=== PATIENT | female | born 1965 | race Caucasian/White ===

== ENCOUNTER 2019-09-18 07:31 | Outpatient (CLI) | payer OTHER, SELFPAY ==
--- NOTE | ~2019-09-18 | MM_ITS ---
EXAMINATION: MM screening [facility] BI w skip HISTORY: Screening mammogram, family history of breast cancer in her mother. TECHNIQUE: Craniocaudal and mediolateral oblique 3-D tomosynthesis images were obtained and synthetic 2-D images were generated. CAD analysis was submitted and interpreted. COMPARISON: 09/11/2018, 09/07/2017 BREAST PARENCHYMAL COMPOSITION: There are scattered areas of fibroglandular density. FINDINGS: There is stable focal asymmetry in the upper-outer quadrant of the left breast with biopsy change. There is no evidence of suspicious mass, calcification, or architectural distortion to sugges t malignancy in either breast. There has been no suspicious interval change. IMPRESSION: 1. No mammographic evidence of malignancy. 2. Recommend routine screening mammography in one year. BI-RADS Category 2: Benign finding(s). Reviewed, dictated and finalized at location A.
== END 2019-09-18 07:32 | disposition home or self-care (01) ==
LOC: ANHIMG 07:33
PROVIDERS: PCP Family Medicine; Visit Provider Family Medicine
DX: Z12.31 Encounter for screening mammogram for malignant neoplasm of breast (principal)
CPT/HCPCS: 77063; 77067

== ENCOUNTER → 2020-07-10 09:29 | Outpatient (CLI) | payer OTHER, SELFPAY ==
--- NOTE | ~2020-07-10 | XR_ITS ---
EXAMINATION: XR chest 2V DATE: 07/10/2020 09:57 INDICATION: Pleurisy. TECHNIQUE: Frontal and lateral views of the chest were obtained. COMPARISON: CT abdomen and pelvis 09/02/16 FINDINGS: The chest demonstrates clear lungs without pneumonia, pleural effusion, or pneumothorax. Th e heart size is normal. IMPRESSION: 1. No acute cardiopulmonary disease. Reviewed, dictated and finalized at location A. MS ASSISTANT
== END ==
PROVIDERS: PCP Family Medicine; Visit Provider Physician Assistant
DX: R09.1 Pleurisy (principal)
CPT/HCPCS: 71046

== ENCOUNTER → 2020-09-19 09:57 | Outpatient (CLI) | payer OTHER, SELFPAY ==
--- NOTE | ~2020-09-19 | MM_ITS ---
EXAMINATION: MM screening patience BI w skip HISTORY: Screening mammogram, family history of breast cancer in her mother. TECHNIQUE: Craniocaudal and mediolateral oblique 3-D tomosynthesis images were obtained and synthetic 2-D images were generated. CAD analysis was submitted and interpreted. COMPARISON: 09/18/2019, 09/11/2018, 09/07/2017 BREAST PARENCHYMAL COMPOSITION: There are scattered areas of fibroglandular density. FINDINGS: Again noted is stable focal asymmetry in the upper outer quadrant of the left breast with b iopsy change. There is no evidence of suspicious mass, calcification, or architectural distortion to suggest malignancy in either breast. There has been no suspicious interval change. IMPRESSION: 1. No mammographic evidence of malignancy. 2. Recommend routine screening mammography in one year. BI-RADS Category 2: Benign finding(s). Reviewed, dictated and finalized at location A.
--- NOTE | ~2020-09-19 | DEXA_ITS ---
Bone Density Report Name: Katty Cartwright Age: 55 Sex: Female Ethnicity: White Date of : 1965 Indication: postmenopausal; screening for osteoporosis; Referring Provider: Blaise Painting Study: Bone densitometry was performed. Exam Date: September 19, 2020 Accession number: [id number] Bone Density: Region BMD T-score Z-score Classification AP Spine (L1-L4) 1.016 -0.3 0.9 Normal Femoral Neck (Left) 0.867 0.2 1.3 Normal Total Hip (Left) 1.134 1.6 2.3 Normal Femoral Neck (Right) 0.821 -0.3 0.9 Normal Total Hip (Right) 1.053 0.9 1.7 Normal Total Hip Mean 1.094 1.3 2.0 Normal World Health Organization criteria for BMD impression classify patients as: Normal (T-score at or above -1.0), Osteopenia (T-score between -1.0 and -2.5), or Osteoporosis (T-score at or below -2.5). 10-year Fracture Risk: FRAX not reported because: All T-scores for Spine Total, Hip Total, Femoral Neck at or above -1.0 Clinical Information Provided by Patient: Has used the following medications: Vitamin D Patient maximum height was 62 Menopause Age: 50 No regular weight bearing exercise Drinks caffeinated beverages Onset of menses at age 11 Number of children 2 Impression: The patient has normal bone mass. Discussion: BONE DENSITY IS ABOVE THE MINIMUM DESIRABLE LEVEL AT ALL SKELETAL SITES TESTED. This patient?s bone mineral density is above the minimum desirable level (T-score -1.0 or better) at all sites measured. The patient should follow a healthful lifestyle (good nutrition with adequate calcium and vitamin D, and appropriate weight-bearing exercise). Follow-Up: Consider repeating this study in 5 years or sooner if there is some new clinical indication. Reported by: [facility] on 09/19/2020 10:45:00 AM. Reviewed, dictated and finalized at location A. [facility]
== END ==
PROVIDERS: PCP Family Medicine; Visit Provider Physician Assistant
DX: Z12.31 Encounter for screening mammogram for malignant neoplasm of breast (principal); Z13.820 Encounter for screening for osteoporosis
CPT/HCPCS: 77063; 77067; 77080

== ENCOUNTER → 2021-01-05 08:17 | Outpatient (CLI) | payer OTHER, SELFPAY ==
--- NOTE | ~2021-01-05 | XR_ITS ---
EXAMINATION: XR chest 2V DATE: 01/05/2021 08:43 INDICATION: Left-sided chest pain TECHNIQUE: PA and lateral views of the chest are obtained. COMPARISON: 07/10/2020 FINDINGS: The lungs are free of acute opacities. There is no pleural effusion or pneumothorax. The ca rdiomediastinal silhouette is normal. There is mild thoracic spondylosis. IMPRESSION: 1. No acute cardiopulmonary abnormality. Reviewed, dictated and finalized at location A.
--- NOTE | ~2021-01-05 | CT_ITS ---
EXAMINATION: CT abdomen pelvis wo con DATE: 01/05/2021 08:43 INDICATION: Right lower quadrant abdominal pain TECHNIQUE: Computed tomography (CT) of the abdomen and pelvis was performed without intravenous contr ast. The dose-length product (DLP) was 1052.11 mGy-cm. Automated exposure control and iterative recon struction technique were employed. COMPARISON: 09/02/2016 FINDINGS: The lung bases are clear. The heart size is normal. A small sliding hiatal hernia is noted. The liver, spleen, pancreas, gallbladder, and adrenal glands are normal. There is a 5 mm nonobstruct ing stone of the left kidney. The right kidney is unremarkable. No pathologically enlarged abdominal or pelvic lymph nodes are identified. There is no free intraperitoneal gas or evidence of bowel obstr uction. A moderate volume of colonic stool is present. The appendix is normal. A small umbilical latanya ia containing fat is noted. There is mild lumbar spondylosis. IMPRESSION: 1. No CT correlate for the patient's symptoms. 2. Nonobstructing left nephrolithiasis. 3. Umbilical hernia containing fat Reviewed, dictated and finalized at location A.
== END ==
PROVIDERS: PCP Family Medicine; Visit Provider Family Medicine
DX: K42.9 Umbilical hernia without obstruction or gangrene (principal); R07.81 Pleurodynia; N20.0 Calculus of kidney
CPT/HCPCS: 71046; 74176

== ENCOUNTER 2021-09-18 12:55 | Emergency (ER) | payer OTHER, SELFPAY ==
--- NOTE | ~2021-09-18 | XR_ITS ---
EXAMINATION: XR chest 2V DATE: 09/18/2021 14:36 INDICATION: Epigastric pain TECHNIQUE: PA and lateral views of the chest are obtained. COMPARISON: 01/05/2021 FINDINGS: The lungs are free of acute opacities. There is no pleural effusion or pneumothorax. The ca rdiomediastinal silhouette is normal. There is mild thoracic spondylosis. IMPRESSION: 1. No acute cardiopulmonary abnormality. Reviewed, dictated and finalized at location A.
[2021-09-18 13:17] VITALS: BP 152/74; PULSE 77; RESP 14; TEMP 36.4; O2SAT 100
[2021-09-18 13:54] VITALS: BP 148/86; PULSE 79; RESP 18; O2SAT 100
[2021-09-18 14:01] VITALS: BP 141/84; PULSE 77; RESP 19; O2SAT 97
--- NOTE | 2021-09-18 14:04 | ECG_ITS ---
Measurements Intervals [place] Rate: 70 P: 38 [place]: 147 QRS: 7 QRSD: 67 T: 37 QT: 355 QTc: 385 Interpretive Statements SINUS RHYTHM LOW QRS VOLTAGE IN PRECORDIAL LEADS BORDERLINE T WAVE ABNORMALITY- ANTERIOR LEADS BASELINE ARTIFACT- I, III, AVL, AVF BORDERLINE ECG Electronically Signed On 09-18-2021 14:27:50 CDT by Julio Bragg D.O.
[2021-09-18 14:25] LABS: Basophils Percent Auto 0.6 % (0.2-1.2); Eosinophils Absolute Auto 0.1 K/mm3 (0-0.3); Eosinophils Percent Auto 1.3 % (0-4.4); Hematocrit 40.8 % (37.0-47.0); Hemoglobin 14.1 g/dL (12.0-15.0); Immature Granulocyte Absolute 0.01 K/mm3 (0.00-0.031); Immature Granulocyte Percent A 0.2 % (0-0.5); Lymphocytes Absolute Auto 1.45 K/mm3 (0.9-3.2); Lymphocytes Percent Auto 30.3 % (18.3-44.2); Mean Corpuscular HGB Conc 34.6 g/dl (32-36); Mean Corpuscular Hemoglobin 31.9 pg (26-34); Mean Corpuscular Volume 92.3 fl (80-100); Monocytes Absolute Auto 0.4 K/mm3 (0.1-0.6); Monocytes Percent Auto 9.2 % (2.6-8.5); Neutrophils Absolute Auto 2.8 K/mm3 (1.3-6.7); Neutrophils Percent Auto 58.4 % (45.5-73.1); Platelet Count Result 199 k/mm3 (150-375); Red Blood Count 4.42 M/mm3 (4.2-5.4); White Blood Count 4.8 K/mm3 (4.5-10.0)
[2021-09-18] MEDS: BELLADONNA ALK/PHENOB ELIX 10 ML, MAG HYDROX/ALUMINUM HYD/SIMETH 30 ML, LIDOCAINE HCL 2... PO (14:29)
--- NOTE | 2021-09-18 14:31 | PC.NURSE ---
Pt to XRAY via stretcher at this time.
[2021-09-18 14:35] LABS: Prothrombin Time 12.6 Seconds (11.1-14.7)
[2021-09-18 14:36] LABS: Alanine Aminotransferase 31 U/L (6-35); Albumin Level 4.6 g/dL (3.5-5.1); Alkaline Phosphatase 81 U/L (38-126); Anion Gap 6 mmol/L (8-16); Aspartate Amino Transferase 28 U/L (14-36); Bilirubin,Total 0.7 mg/dL (0.2-1.3); Blood Urea Nitrogen 19 mg/dL (7-17); Calcium 9.5 mg/dL (8.4-10.2); Carbon Dioxide 29 mmol/L (22-30); Chloride 103 mmol/L (98-107); Estimated CRCL calculation 76 ml/min; Estimated Glomerular Filt Rate > 60; Glucose 90 mg/dL (65-110); Lipase 89 U/L (23-300); Partial Thromboplastin Time 33.2 SECONDS (22.3-36.8); Sodium 138 mmol/L (137-145)
[2021-09-18 14:47] LABS: Troponin I < 0.012 ng/mL (0.000-0.034)
--- NOTE | 2021-09-18 14:52 | ED.GENADULT ---
HPI - General Adult General Chief complaint: Unspecified Stated complaint: acid reflux Time Seen by Provider: 09/18/21 13:55 History of Present Illness HPI narrative: Patient is a 56-year-old female who presents ER with acid reflux. Reports it began 2 days ago. Is very intense with poor taste going into the back of mouth. Associated with sweats and nausea. She is also had some radiation into her right shoulder. Symptoms have waxed and waned over the last 2 days. She has tried acid reflux medication with only temporary improvement. No chest pain or chest pressure. No exertional dyspnea or shortness of breath. Reports she has history of reflux its usually triggered in the evening. PCP became concerned and recommended she come to the ER to have her heart evaluated. No history of coronary disease. Related Data Allergies Allergy/AdvReac Type Severity Reaction Status Date / Time No Known Allergies Allergy Verified 09/18/21 13:54 Review of Systems Review of Systems: All systems reviewed & are unremarkable except as noted in HPI and below Constitutional: Constitutional: Denies chills and Denies fever(s) ENT: Denies nasal congestion and Denies sore throat Cardiovascular: Cardiovascular: Denies chest pain, Denies radiating jaw, neck or arm pain and Denies palpitations Gastrointestinal: Gastrointestinal: Denies abdominal pain, Reports heartburn, Denies nausea and Denies vomiting PMFSH Past Medical History Medical History (Updated 09/18/21 @ 16:14 by Douglas Ellsworth MD) Morbid obesity Surgical History Surgical History (Updated 09/18/21 @ 16:11 by Douglas Ellsworth MD) History of breast biopsy Family History Family History Grandparent Diabetes mellitus Family history of cardiovascular disease Mother Family history of malignant neoplasm of breast in first degree relative, Onset Age: 72 Social History Social History Alcohol intake: current Exam Narrative: GENERAL: Well-appearing, well-nourished, and in no acute distress. HEAD: Normocephalic, atraumatic. NECK: Supple. CHEST: Clear to auscultation. No respiratory distress. HEART: Regular rate and rhythm. Normal peripheral pulses. ABDOMEN: Soft, nontender, nondistended. EXTREMITIES: Normal range of motion. No edema. SKIN: Warm, dry, no rash. NEURO: Alert and oriented x3. PSYCH: Normal mood and affect. Course Course Emergency Course: Patient informed of results. Symptoms improved with GI cocktail. Discharge home. Vital Signs Vital signs: Vital Signs Temperature 97.6 F 09/18/21 13:17 Pulse Rate 77 09/18/21 13:17 Respiratory Rate 14 09/18/21 13:17 Blood Pressure 152/74 H 09/18/21 13:17 Pulse Oximetry 100 09/18/21 13:17 Temperature 97.6 F 09/18/21 13:17 Pulse Rate 60 09/18/21 16:00 Respiratory Rate 18 09/18/21 16:00 Blood Pressure 126/80 09/18/21 16:00 Pulse Oximetry 98 09/18/21 16:00 Medical Decision Making Vital Signs Vital Signs: Vital Signs Temperature 97.6 F 09/18/21 13:17 Pulse Rate 77 09/18/21 13:17 Respiratory Rate 14 09/18/21 13:17 Blood Pressure 152/74 H 09/18/21 13:17 Pulse Oximetry 100 09/18/21 13:17 Temperature 97.6 F 09/18/21 13:17 Pulse Rate 60 09/18/21 16:00 Respiratory Rate 18 09/18/21 16:00 Blood Pressure 126/80 09/18/21 16:00 Pulse Oximetry 98 09/18/21 16:00 Lab Data Result diagrams: 09/18/21 14:18 09/18/21 14:18 Labs: Lab Results 09/18/21 09/18/21 09/18/21 Range/Units 14:18 14:18 14:18 WBC 4.8 (4.5-10.0) K/mm3 RBC 4.42 (4.2-5.4) M/mm3 Hgb 14.1 (12.0-15.0) g/dL Hct 40.8 (37.0-47.0) % MCV 92.3 (80-100) fl MCH 31.9 (26-34) pg MCHC 34.6 (32-36) g/dl RDW 13.0 (11.5-14.5) % Plt Count 199 (150-375) k/mm3 MPV 10.0 (7.4-10.4) fl Immature Gr
[2021-09-18 16:00] VITALS: BP 126/80; PULSE 60; RESP 18; O2SAT 98
== END 2021-09-18 16:22 | disposition home or self-care (01) ==
PROVIDERS: Emergency Provider Emergency Medicine; PCP Family Medicine
DX: K21.9 Gastro-esophageal reflux disease without esophagitis (principal); E66.01 Morbid (severe) obesity due to excess calories; Z68.41 Body mass index [BMI] 40.0-44.9, adult
CPT/HCPCS: 36415; 71046; 80053; 83690; 84484; 85025; 85610; 85730; 93005; 99284; A9270

== ENCOUNTER → 2021-09-21 07:12 | Outpatient (CLI) | payer OTHER, SELFPAY ==
--- NOTE | ~2021-09-21 | MM_ITS ---
EXAMINATION: MM screening [facility] BI w skip HISTORY: Screening mammogram TECHNIQUE: Craniocaudal and mediolateral oblique 3-D tomosynthesis images were obtained and synthetic 2-D images were generated. CAD analysis was submitted and interpreted. COMPARISON: 09/19/2020, 09/18/2019, 09/11/2018 BREAST PARENCHYMAL COMPOSITION: There are scattered areas of fibroglandular density. FINDINGS: There is stable focal asymmetry in the upper outer quadrant of the left breast with associa sona biopsy change. There is no suspicious mass, calcification, or architectural distortion to suggest malignancy in either breast. There has been no suspicious interval change. IMPRESSION: 1. No mammographic evidence of malignancy. 2. Recommend routine screening mammography in one year. BI-RADS Category 2: Benign finding(s). Reviewed, dictated and finalized at location A.
== END ==
PROVIDERS: PCP Family Medicine; Visit Provider Family Medicine
DX: Z12.31 Encounter for screening mammogram for malignant neoplasm of breast (principal)
CPT/HCPCS: 77063; 77067

== ENCOUNTER → 2021-10-07 16:58 | Outpatient (CLI) | payer OTHER, SELFPAY ==
--- NOTE | ~2021-10-07 | XR_ITS ---
XR ankle LT min 3V DATE: 10/07/2021 17:15 INDICATION: Ankle pain TECHNIQUE: 4 views COMPARISON: 11/19/2008 left ankle FINDINGS: Prominent plantar and posterior calcaneal enthesopathy; no associated periostitis or erosiv e change.. No fracture or dislocation of the ankle or disruption of the ankle mortise. No periosteal reaction or bone destruction. IMPRESSION: Plantar and posterior calcaneal enthesopathy Reviewed, dictated and finalized at location A.
== END ==
PROVIDERS: PCP Family Medicine; Visit Provider Family Medicine
DX: M25.579 Pain in unspecified ankle and joints of unspecified foot (principal); M77.32 Calcaneal spur, left foot
CPT/HCPCS: 73610

== ENCOUNTER 2022-03-22 12:56 | Outpatient (CLI) | payer OTHER, SELFPAY | END 2022-03-22 12:57 | disposition home or self-care (01) | LOC: ANHAUDASC 12:57 | PROVIDERS: PCP Family Medicine; Visit Provider Otolaryngology | DX: H93.8X2 Other specified disorders of left ear (principal); R26.89 Other abnormalities of gait and mobility; H90.A21 Sensorineural hearing loss, unilateral, right ear, with restricted hearing on the contralateral side; H90.A12 Conductive hearing loss, unilateral, left ear with restricted hearing on the contralateral side | CPT/HCPCS: 92557; 92567 ==

== ENCOUNTER → 2022-09-27 12:17 | Outpatient (CLI) | payer OTHER, SELFPAY ==
--- NOTE | ~2022-09-27 | MM_ITS ---
EXAMINATION: MM screening patience BI w skip HISTORY: Screening mammogram, family history of breast cancer in her mother. TECHNIQUE: Craniocaudal and mediolateral oblique 3-D tomosynthesis images were obtained and synthetic 2-D images were generated. CAD analysis was submitted and interpreted. COMPARISON: 09/21/2021, 09/19/2020, 09/18/2019 BREAST PARENCHYMAL COMPOSITION: There are scattered areas of fibroglandular density. FINDINGS: Again seen is stable focal asymmetry in the upper outer quadrant of the left breast with as sociated biopsy change. No suspicious mass, calcification, or architectural distortion are identified in either breast to suggest malignancy. There has been no suspicious interval change. IMPRESSION: 1. No mammographic evidence of malignancy. 2. Recommend routine screening mammography in one year. BI-RADS Category 2: Benign finding(s). Reviewed, dictated and finalized at location A.
== END ==
PROVIDERS: PCP Nurse Practitioner Family; Visit Provider Nurse Practitioner Family
DX: Z12.31 Encounter for screening mammogram for malignant neoplasm of breast (principal)
CPT/HCPCS: 77063; 77067

== ENCOUNTER 2023-03-25 00:18 | Day surgery (SDC) | payer OTHER, SELFPAY ==
--- NOTE | 2023-03-18 15:16 | PC.NURSE ---
Report to the Outpatient Waiting Room, entrance under the green pavilion located off [facility], at time 0830 on date 03/25/23. Planned Procedure Time: 1030. Time changes happen often and if your time is changed the preop area will call you the afternoon before. - You and your visitor will be asked to self-screen and do not enter if you have any COVID symptoms. - A mask is optional within the hospital at this time. Patients may have clear liquids (water, carbonated beverages, clear teas, apple juice) until 3 hours prior to surgery with a maximum of 20 ounces. 0730 - No food from midnight until time of surgery - Infants may have breast milk until 4 hours before surgery, formula 6 hours prior to surgery. - Children will be allowed to drink immediately following surgery. If applicable, please bring a bottle or sippy cup to assist with drinking. Juice, water, soda, and popsicles are readily available. For infants on formula, please bring formula the day of surgery. Pacifiers are allowed. Take the following medications with a SIP of water the morning of surgery: none DO NOT STOP ANY OF YOUR OTHER PRESCRIPTION MEDICATIONS PRIOR TO SURGERY ?EXCEPT THE FOLLOWING Medications to discontinue per physician multivitamins & supplements, [facility]a, [facility] take [facility] dose 03/22/23- multivitamins & supplements, 03[facility]24/23- [facility], ASK DR. HERNANDEZ ABOUT STOPPING BABY ASA Please no make-up, nail belarusian, hairspray, perfume, deodorant, or body powder the day of surgery. No jewelry (including any body piercings) or valuables the day of surgery, leave them at home. Please take a shower or bath the night before, or the morning of, surgery with an antibacterial soap. Wear comfortable, loose fitting clothing. Children are encouraged to wear pajamas. - Jewelry must be removed prior to entering the operating room. Rings and piercings that are not removed may be cut off. - The hospital will not accept responsibility for valuables. - Please leave all valuables, including medications, at home the day of surgery. If you are going home after surgery, a licensed speedboat driver must drive you home. - NO public transportation without another adult if you receive anesthesia. - We recommend that an adult stay with you for 24 hours following discharge. - We also recommend that you do not drive, make important decision, drink alcoholic beverages, or take any drugs that were not prescribed by your health care provider for at least 24 hours after your discharge time. For Pediatric surgeries, we recommend two adults accompany the child home. Follow any additional instructions given to you from your surgeon. If you or anyone in your household have experienced Covid symptoms in the past week, please notify your surgeon or the nurse liaison at the phone number below for possible testing. Telephone instructions given to Patient- Katty Cartwright and asked if any additional questions and then verbalized understanding. Patient advised to call surgeon office or pre surgery nurse liaison [phone] if any additional questions.
[2023-03-18 15:21] VITALS: BMI 38.5
[2023-03-25] MEDS: LACTATED RINGERS 1,000 ML 30 ML IV CONT (07:00)
[2023-03-25] MEDS: ACETAMINOPHEN 500 MG TABLET 1000 MG PO (07:00)
--- NOTE | 2023-03-25 07:09 | WPDANESEPPF ---
Anes - Initial Pre Proc Eval Procedure: Operation Date: 03/25/23 07:30 Proposed Procedures p Hysteroscopy Dilation and Curettage, Possible Polypectomy with Myosure - Lori Kelley DO Date/Time: 03/25/23 07:09 Surgeon: Lori Kelley DO Pre Op Diagnosis: post menopausal bleeding Patient Data Age: 58 Gender: F Height: 1.57 m Weight: 95.4 kg Allergies Allergy/AdvReac Type Severity Reaction Status Date / Time No Known Allergies Allergy Verified 03/18/23 15:07 Home Medications Medication Instructions Recorded Confirmed Type Adult Probiotic 1 tab-cap PO DAILY 03/18/23 03/18/23 History Adults Multivitamin 1 tab-cap PO DAILY 03/18/23 03/18/23 History Zyrtec 10 mg PO DAILY 03/18/23 03/18/23 History aspirin 81 mg tablet 81 mg PO DAILY 03/18/23 03/18/23 History Patient hx anesthesia problems: none Family hx anesthesia problems: none Results Review: All pre-operative results and documents have been reviewed as part of the pre-operative evaluation. [facility] Past Medical History Medical History BMI greater than 40 Carpal tunnel syndrome Excessive or frequent menstruation Hx of ovarian cyst Migraine Morbid obesity Other specified abnormal uterine and vaginal bleeding Vaginal candidiasis Surgical History Surgical History History of breast biopsy Family History Family History Grandparent Diabetes mellitus Family history of cardiovascular disease Mother Family history of malignant neoplasm of breast in first degree relative, Onset Age: 72 Other Family history of malignant neoplasm of breast in first degree relative Social History Social History Smoking status: Never smoker Alcohol intake: current Drinks per week: 0 Alcohol use details: 2-3 per month Substance use: never Substance use type: does not use Lack of Transportation: No Lack of Food: Never True Current Housing: I Have Housing Concerned About Future Housing: No Difficulty Paying Gas/Electric Bills: No Difficulty Paying for Meds: No Currently Unemployed: No Education: Trade/Vocational Certificate Difficulty w/ Childcare or Family Care: No Spiritual care concerns: No Anes - Eval Final PreProcedure Day of Procedure 03/25/23 07:09 Patient weight: obese Heart: regular rate and rhythm Lungs: clear to auscultation Airway: Mallampati scale class III Neurological: alert and oriented Last oral intake: >/= 8 hours ASA classification: III Emergent: no Anesthetic plan: proceed Anesthesia type and monitoring: general GIVS (may use LMA) and standard monitoring Results Review: All pre-operative results and documents have been reviewed as part of the pre-operative evaluation. Informed Consent: The patient's anesthetic plan and its attendant risks and benefits were discussed with the patient/family/POA. Questions were solicited and answers provided to the satisfaction of the patient/family/POA.
--- NOTE | 2023-03-25 07:14 | PM.IMHP ---
H&P: HPI History of Present Illness Date/Time: 03/25/23 07:14 Chief Complaint: I'm here for a D&C Narrative: Dora presents for hysteroscopy, D&C possible resectoscope (Aveta or Myosure) for postmenopausal bleeding and a thickened endometrium. Review of Systems Review of Systems: All systems reviewed & are unremarkable except as noted in HPI and below PMFSH Past Medical History Medical History BMI greater than 40 Carpal tunnel syndrome Excessive or frequent menstruation Hx of ovarian cyst Migraine Morbid obesity Other specified abnormal uterine and vaginal bleeding Vaginal candidiasis Surgical History Surgical History History of breast biopsy Family History Family History Grandparent Diabetes mellitus Family history of cardiovascular disease Mother Family history of malignant neoplasm of breast in first degree relative, Onset Age: 72 Other Family history of malignant neoplasm of breast in first degree relative Social History Social History Smoking status: Never smoker Alcohol intake: current Drinks per week: 0 Alcohol use details: 2-3 per month Substance use: never Substance use type: does not use Lack of Transportation: No Lack of Food: Never True Current Housing: I Have Housing Concerned About Future Housing: No Difficulty Paying Gas/Electric Bills: No Difficulty Paying for Meds: No Currently Unemployed: No Education: Trade/Vocational Certificate Difficulty w/ Childcare or Family Care: No Spiritual care concerns: No Meds Home Medications and Allergies Home Medications Medication Instructions Recorded Confirmed Type Adult Probiotic 1 tab-cap PO DAILY 03/18/23 03/18/23 History Adults Multivitamin 1 tab-cap PO DAILY 03/18/23 03/18/23 History Zyrtec 10 mg PO DAILY 03/18/23 03/18/23 History aspirin 81 mg tablet 81 mg PO DAILY 03/18/23 03/18/23 History Allergies Allergy/AdvReac Type Severity Reaction Status Date / Time No Known Allergies Allergy Verified 03/18/23 15:07 Exam Const: General: comfortable and no acute distress Eyes: General: appearance normal, both eyes and all related structures Resp: Effort & Inspection: normal respiratory effort Auscultation: clear to auscultation bilaterally Cardio: Rate: regular rate Rhythm: regular rhythm GI: GI Palp: Yes Soft to palpation Auscultation: normal bowel sounds Skin: General skin exam: normal color Wounds: no wounds Psych: Mental Status: mental status grossly normal Affect: normal affect Assessment and Plan Assessment and plan (1) Thickened endometrium: Code(s): R93.89 - Abnormal findings on diagnostic imaging of other specified body structures Status: Acute (2) Postmenopausal bleeding: Code(s): N95.0 - Postmenopausal bleeding Status: Acute Plan Hysteroscopy, D&C, possible resectoscope (Aveta or Myosure)
--- NOTE | 2023-03-25 07:16 | WPDHPUPDATE1 ---
History and Physical Update Update Date/Time: 03/25/23 07:16 History and Physical has been reviewed, including an updated exam of the patient. There are NO changes in the patient's condition. Risks, benefits, and alternatives have been discussed and questions answered. Patient agrees to proceed with procedure.
[2023-03-25 07:30] VITALS: BP 127/81; PULSE 83; RESP 14; TEMP 36.7; O2SAT 96
[2023-03-25] MEDS: LIDOCAINE HCL 1% LOCAL INJ 20 ML VIAL 10 ML INFILTRATE (07:46)
[2023-03-25] MEDS: KETOROLAC 15 MG/ML VIAL (*BKC) IV PUSH (07:51)
--- NOTE | 2023-03-25 07:57 | W.PM.PROC2 ---
Procedure Note - Detailed Date of Procedure 03/25/23 Pre-op Diagnosis Postmenopausal bleeding Thickened endometrium Post-op Diagnosis Same Procedure Performed Hysteroscopy, D&C, resection of polypectomy Surgeon Lori Kelley, DO Anesthesia MAC Indications Postmenopausal bleeding thickened endometrium Findings Normal appearing vulva and vaginal canal. Large cervix. Uterus was anteverted and sounded to 8 cm. Within the endometrial cavity there was a large fleshy polyp. Both tubal ostia were easily seen. Full resection of the polyp was performed. Description of Procedure Patient was taken to the operating room where she was placed under IV sedation. She was prepped and draped in the normal sterile fashion in a dorsal lithotomy position. No preoperative antibiotics were indicated. A time-out was performed. A speculum was placed in the vagina and the cervix was visualized. The posterior lip of the cervix was grasped with a long Allis clamp and a paracervical block was performed. The cervix was then sequentially dilated up to accommodate the Aveta scope. The scope was introduced and a survey of the endometrial cavity revealed the above-mentioned findings. A large polyp was noted which was attached to the posterior right wall of the uterus. The resectoscope was introduced and full resection of the polyp was performed. Cavity was then noted to be clean and both tubal ostia were easily visualized. The resectoscope was removed. The Allis clamp was removed and blood was wiped clean of the vaginal canal. The speculum was removed. The patient was taken to the recovery room in stable condition. All instrument and sponge counts were correct at the conclusion of the procedure. Estimated Blood Loss 5 IV Fluids 500 Pathology Yes Complications No immediate complications Condition Stable Disposition PACU
[2023-03-25 08:00] VITALS: BP 95/41; PULSE 85; RESP 16; O2SAT 95
--- NOTE | 2023-03-25 08:02 | PM.DS ---
DS: Summary Time Spent with Patient Time attestation: Total time spent providing and/or coordinating discharge services: DS: Data Data Completed and Pending Pending studies at discharge: Pending at discharge 03/25/23 07:41 Surgical [PTH] Routine 03/25/23 07:50 Surgical [PTH] Routine Discharge Plan Discharge Patient Disposition: Home, Self-Care Stand Alone Forms: General Discharge Instructions Discharge Medications: No Action Adult Probiotic 1 tab-cap PO DAILY Adults Multivitamin 1 tab-cap PO DAILY aspirin 81 mg Tablet 81 mg PO DAILY Zyrtec 10 mg PO DAILY
[2023-03-25 08:30] VITALS: BP 101/68; PULSE 68; RESP 18
== END 2023-03-25 08:45 | disposition home or self-care (01) ==
PROVIDERS: PCP Family Medicine; Visit Provider Obstetrics & Gynecology Gynecologic Oncology
PROC: 0U5B8ZZ Destruction of Endometrium, Via Natural or Artificial Opening Endoscopic (ICD-10-PCS; CPT 58563; principal; 2023-03-25 07:30)
DX: N85.01 Benign endometrial hyperplasia (principal); N95.0 Postmenopausal bleeding; E66.9 Obesity, unspecified; Z68.41 Body mass index [BMI] 40.0-44.9, adult; Z79.82 Long term (current) use of aspirin; Z82.49 Family history of ischemic heart disease and other diseases of the circulatory system; Z80.3 Family history of malignant neoplasm of breast
CPT/HCPCS: 58558; 88305; A9270; J1100; J1885; J2250; J2405; J2704; J3010; J7120

== ENCOUNTER 2023-10-21 10:02 | Outpatient (CLI) | payer OTHER, SELFPAY ==
--- NOTE | ~2023-10-21 | MM_ITS ---
EXAMINATION: MM screening [facility] BI w skip HISTORY: Screening TECHNIQUE: Craniocaudal and mediolateral oblique 3-D tomosynthesis images were obtained and synthetic 2-D images were generated. CAD analysis was submitted and interpreted. COMPARISON: Comparison to multiple prior studies sequentially, with oldest reviewed study dated 06/2017. BREAST PARENCHYMAL COMPOSITION: Not dense: There are scattered areas of fibroglandular density. FINDINGS: There is no evidence of suspicious mass, calcification, or architectural distortion to sugg est malignancy in either breast. There has been no suspicious interval change. IMPRESSION: 1. No mammographic evidence of malignancy. 2. Recommend routine screening mammography in one year. BI-RADS Category 1: Negative Reviewed, dictated and finalized at location B.
== END 2023-10-21 10:03 | disposition home or self-care (01) ==
LOC: ANHIMG 10:04
PROVIDERS: PCP Family Medicine; Visit Provider Family Medicine
DX: Z12.31 Encounter for screening mammogram for malignant neoplasm of breast (principal)
CPT/HCPCS: 77063; 77067

== ENCOUNTER 2024-10-22 09:47 | Outpatient (CLI) | payer OTHER, SELFPAY ==
--- NOTE | ~2024-10-22 | MM_ITS ---
EXAMINATION: MM screening [facility] BI w skip HISTORY: Screening TECHNIQUE: Craniocaudal and mediolateral oblique 3-D tomosynthesis images were obtained and synthetic 2-D images were generated. CAD analysis was submitted and interpreted. COMPARISON: Comparison to multiple prior studies sequentially, with oldest reviewed study dated 10/2018. BREAST PARENCHYMAL COMPOSITION: Not Dense: The breasts are almost entirely fatty. FINDINGS: There is no evidence of suspicious mass, calcification, or architectural distortion to sugg est malignancy in either breast. There has been no suspicious interval change. IMPRESSION: 1. No mammographic evidence of malignancy. 2. Recommend routine screening mammography in one year. BI-RADS Category 1: Negative Reviewed, dictated and finalized at location A.
--- OUTSIDE RECORDS SUMMARY | 2024-10-22 10:30 | XMS_ITS | Referral Summary ---
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 A 1 year screening mammogram is recommended. The patient has been or will be contacted. The patient will be entered into an automated reminder system to schedule a mammogram in one year. Electronically signed by: Dr. Dejuan Agudelo nh/:08/01/2014 08:51:32 Cold Press Operator: Larisa Mosley RT (R)(M), [facility] letter sent: Normal Exam Reading location: BI-RADS: 1 Negative [EOD] Narrative 08/01/2014 8:52 AM CDT - [facility] BILATERAL SCREENING W/CAD BILATERAL DIGITAL SCREENING MAMMOGRAM WITH CAD: 07/31/2014 The study was acquired using full field digital technology and interpreted from soft copy. Current study was also evaluated with ICAD version 7.2. COMPARISONS: Comparison is made to exams dated: 08/02/2013 mammogram and 07/26/2012 mammogram - [facility]. BREAST TISSUE: There are scattered areas of fibroglandular density. FINDINGS: No significant masses, calcifications, or other findings are seen in either breast. There has been no significant interval change. Procedure Note Provider, MD Young - 09/22/2020 - [facility]IE BILATERAL SCREENING W/CAD BILATERAL DIGITAL SCREENING MAMMOGRAM WITH CAD: 07/31/2014 The study was acquired using full field digital technology and interpretedfrom soft copy. Current study was also evaluated with ICAD version 7.2. COMPARISONS: Comparison is made to exams dated: 08/02/2013 mammogram and 07/26/2012 mammogram - [facility]. BREAST TISSUE: There are scattered areas of fibroglandular density. FINDINGS: No significant masses, calcifications, or other findings areseen in either breast. There has been no significant interval change. IMPRESSION: BIRADS 1: NEGATIVE There is no mammographic evidence of malignancy. A 1 year screeningmammogram is recommended. The patient has been or will be contacted. The patient will be entered into an automated reminder system to schedulea mammogram in one year. Electronically signed by: Dr. Dejuan Agudelo nh/:08/01/2014 08:51:32 Cold Press Operator: Larisa Mosley RT (R)(M), [facility] letter sent: Normal Exam Reading location: BI-RADS: 1 Negative [EOD] [facility] Yung Keenan MD IMG MAMMO PROCEDURES Final Resul t from Last 3 Months or Most Recently Relevant to Health Maintenance Insurance [facility] [employer] Care Teams Gis Physical Scientist Relationship Specialty Start Date End Date Jayson Burrell MD [address] [place] [address] PCP - General Family Medicine 06/12/24
--- OUTSIDE RECORDS SUMMARY | 2024-10-22 10:30 | XMS_ITS | Clinical Summary ---
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 Gender Identity Not on file Sexual Orientation Not on file Plan of Treatment Health Maintenance Due Date Last Done Comments Cervical Cancer Screening 1965 Colon Cancer Screening-Colonoscopy 1965 Depression Screening 1965 Hepatitis C Screening 1965 DTaP/Tdap/Td Vaccine (1 - Tdap) 02/09/1975 Hepatitis B Screening 02/09/1982 Regular Well Visit/Exam 18-64 02/09/1982 Zoster Vaccine (1 of 2) 02/09/2014 Breast Cancer Screening-Mammogram 08/01/2015 07/31/2014, 08/02/2013, 07/26/2012 Covid-19 Vaccine ( season) 2024 01/03/2022, 12/10/2021 Influenza Vaccine (Season Ended) 2025 02/01/2019, 01/26/2018, 02/05/2016, Additional history exists Pneumococcal vaccine <65 Aged Out No longer eligible based on patient's age to complete this topic Procedures Procedure Name Priority Date/Time Associated Diagnosis [...] signed by: Dr. Dejuan Agudelo nh/:08/01/2014 08:51:32 Formal Waiter/Waitress: Larisa Mosley RT (R)(M), [facility] letter sent: Normal Exam Reading location: BI-RADS: 1 Negative [EOD] Narrative 08/01/2014 8:52 AM CDT - [facility] BILATERAL SCREENING W/CAD BILATERAL DIGITAL SCREENING MAMMOGRAM WITH CAD: 07/31/2014 The study was acquired using full field digital technology and interpreted from soft copy. Current study was also evaluated with ICAD version 7.2. COMPARISONS: Comparison is made to exams dated: 08/02/2013 mammogram and 07/26/2012 mammogram - [facility]. BREAST TISSUE: There are scattered areas of [...] dated: 08/02/2013 mammogram and 07/26/2012 mammogram - [facility]. BREAST TISSUE: There are scattered areas of [...] signed by: Dr. Dejuan Agudelo nh/:08/01/2014 08:51:32 Formal Waiter/Waitress: Larisa Mosley RT (R)(M), [facility] letter sent: Normal Exam Reading location: BI-RADS: 1 Negative [EOD] [facility] Ynug Keenan MD IMG MAMMO PROCEDURES Final Resul t from Last 3 Months or Most Recently Relevant to Health Maintenance Insurance [facility] [employer] Care Teams Ground Water Technician Relationship Specialty Start Date End Date Jayson Burrell MD [address] [place] [address] PCP - General Family Medicine 06/12/24
== END 2024-10-22 09:48 | disposition home or self-care (01) ==
PROVIDERS: PCP Family Medicine; Visit Provider Nurse Practitioner Women's Health
DX: Z12.31 Encounter for screening mammogram for malignant neoplasm of breast (principal)
CPT/HCPCS: 77063; 77067